=== PATIENT | male | born 1985 | race Caucasian/White ===

== ENCOUNTER 2017-04-18 22:41 | Emergency (ER) | payer SELFPAY ==
[2017-04-19] MEDS ORDERED: Ketorolac INJ* 60 MG/2 ML VIAL IM ONE (00:30)
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
[2017-04-19 02:12] LABS: Hematocrit 35 % (42-52); Mean Corpuscular HGB Conc 31 g/dl (31-36); Mean Corpuscular Hemoglobin 25 pg (27-31); Mean Corpuscular Volume 80 fL (80-94); Mean Platelet Volume 8 um3 (7.4-10.4); Red Blood Count 4.36 10^6/ul (4.0-5.4); Red Cell Distribution Width 14 % (10.5-15); White Blood Count 7.9 10^3/ul (3.5-10.8)
[2017-04-19 02:13] LABS: BUN/Creatinine Ratio 11.5 (8-20); Calcium 8.9 mg/dL (8.6-10.3); EGFR Non-African American 101.1 (>60)
[2017-04-19] MEDS ORDERED: DOXYcycline CAP(*) 100 MG PO ONE (02:22)
[2017-04-19 02:37] VITALS: BP 109/66
--- NOTE | 2017-04-19 07:16 | RAD ---
INDICATION: Right lower leg injury. TECHNIQUE: 2 views of the right lower leg were obtained. FINDINGS: There is a soft tissue defect present along the distal lateral aspect of the lower leg with surrounding soft tissue swelling. The bones are in normal alignment. No significant focal osseous abnormality or fracture is seen. IMPRESSION: SOFT TISSUE DEFECT AND SWELLING, NO EVIDENCE FOR FRACTURE.
== END 2017-04-19 02:44 | disposition home or self-care (01) ==
LOC: ED 22:41
DX: L03.90 Cellulitis, unspecified (principal); R60.9 Edema, unspecified
CPT/HCPCS: 36415; 80048; 85025; 96372; 99282; A9270-GY; J1885

== ENCOUNTER 2017-07-03 13:24 | Emergency (ER) | payer SELFPAY ==
[2017-07-03 13:36] VITALS: BP 114/59
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
[2017-07-03] MEDS ORDERED: Tetracaine 0.5% OPTH.SOL 4 ML* 1 DROP BTL LEFT EYE ONE (14:27)
[2017-07-03] MEDS ORDERED: Fluorescein Sodium TOPICAL* 1 MG TEST OPHTHALMIC ONE (14:28)
[2017-07-03] MEDS ORDERED: Ketorolac INJ* 60 MG/2 ML VIAL IM ONE (15:00)
== END 2017-07-03 15:14 | disposition home or self-care (01) ==
LOC: UCEAST 13:24
DX: L03.116 Cellulitis of left lower limb (principal)
CPT/HCPCS: 81003; 99212; A9270-GY; G0463; J1885

== ENCOUNTER 2017-09-16 09:38 | Emergency (ER) | payer SELFPAY ==
[2017-09-16 09:55] VITALS: BP 126/74
[2017-09-16] MEDS ORDERED: ceFAZolin 500 MG VIAL(*) 500 MG VIAL IM ONE (12:07)
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
== END 2017-09-16 12:46 | disposition home or self-care (01) ==
LOC: UCEAST 09:38
DX: H10.9 Unspecified conjunctivitis (principal); H00.036 Abscess of eyelid left eye, unspecified eyelid; H00.016 Hordeolum externum left eye, unspecified eyelid; J34.0 Abscess, furuncle and carbuncle of nose
CPT/HCPCS: 96372; 99212; G0463; J0690

== ENCOUNTER 2017-11-12 12:13 | Emergency (ER) | payer OTHER ==
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
[2017-11-12] MEDS ORDERED: Ketorolac INJ* 60 MG/2 ML VIAL IM ONE (14:45)
[2017-11-12] MEDS ORDERED: HYDROcodone/ACETAMIN 5-325 MG* 1 TAB PO ONE (14:45)
--- NOTE | 2017-11-12 14:50 | RAD ---
Indication: Neck pain and injury. CT of the cervical spine was obtained in the axial plane. Sagittal and coronal reconstructed images were obtained. The skull base demonstrates no fracture. Mastoid air cells are well aerated. The C1 ring is intact. No fracture is noted. The vertebral bodies appear normal in height. Straightening of the normal lordosis. There is posterior fusion of C7, T1, T2 and at least T3. Spinal canal is otherwise intact. IMPRESSION: No fracture of the cervical spine is noted. Fusion of C7 through at least T3.
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
[2017-11-12 16:07] VITALS: BP 114/62
== END 2017-11-12 16:04 | disposition home or self-care (01) ==
LOC: ED 12:13
DX: S16.1XXA Strain of muscle, fascia and tendon at neck level, initial encounter (principal); S70.02XA Contusion of left hip, initial encounter; W00.0XXA Fall on same level due to ice and snow, initial encounter; Y92.9 Unspecified place or not applicable; G89.29 Other chronic pain; Z98.1 Arthrodesis status; Z87.891 Personal history of nicotine dependence
CPT/HCPCS: 72125; 96372; 99283; J1885

== ENCOUNTER 2017-12-31 11:49 | Emergency (ER) | payer SELFPAY ==
[2017-12-31 12:04] VITALS: BP 116/69
[2017-12-31] MEDS ORDERED: Tetracaine 0.5% OPTH.SOL 4 ML* 1 DROP BTL LEFT EYE ONE (12:07)
[2017-12-31] MEDS ORDERED: Fluorescein Sodium TOPICAL* 1 MG TEST OPHTHALMIC ONE (12:07)
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
[2017-12-31] MEDS ORDERED: Fluorescein Sod TOPICAL 0.6* 0.6 MG TEST OPHTHALMIC ONE (12:20)
== END 2017-12-31 13:08 | disposition home or self-care (01) ==
LOC: UCEAST 11:49
DX: H16.9 Unspecified keratitis (principal)
CPT/HCPCS: 99211; A9270-GY; G0463

== ENCOUNTER 2018-06-22 10:11 | Emergency (ER) | payer SELFPAY ==
[2018-06-22 10:24] VITALS: BP 119/60
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
== END 2018-06-22 11:06 | disposition home or self-care (01) ==
LOC: UCEAST 10:11
DX: J32.8 Other chronic sinusitis (principal); H10.89 Other conjunctivitis; B96.89 Other specified bacterial agents as the cause of diseases classified elsewhere